=== PATIENT | male | born 1995 | race Two or more races ===

== ENCOUNTER 2017-10-23 15:34 | Emergency (ER) | payer MEDICAID ==
[~2017-10-23] VITALS: Ht 185.4 cm; Wt 75.0 kg
[2017-10-23] MEDS ORDERED: DIPHENHYDRAMINE 50MG CAPSULE PO ONE (19:30)
[2017-10-23 19:43] VITALS: BP 126/87
== END 2017-10-23 19:43 | disposition home or self-care (01) ==
LOC: ER 16:24
DX: T78.40XA Allergy, unspecified, initial encounter (principal); F17.200 Nicotine dependence, unspecified, uncomplicated; F12.10 Cannabis abuse, uncomplicated; Y92.89 Other specified places as the place of occurrence of the external cause
CPT/HCPCS: 99282; Q0163

== ENCOUNTER 2018-04-01 10:48 | Emergency (ER) | payer MEDICAID ==
[~2018-04-01] VITALS: Ht 185.4 cm; Wt 65.0 kg
[2018-04-01] MEDS ORDERED: CEFTRIAXONE SODIUM 250 MG/VIAL IM ONE (12:00)
[2018-04-01] MEDS ORDERED: AZITHROMYCIN 500 MG TABLET PO ONE (12:00)
[2018-04-01] MEDS ORDERED: ONDANSETRON 4MG ODT PO ONE (12:00)
[2018-04-01 13:00] LABS: CLARITY URINE CLEAR (CLEAR); COLOR URINE YELLOW (YELLOW); KETONES URINE NEGATIVE (NEGATIVE); LEUKOCYTE ESTERASE URINE NEGATIVE (NEGATIVE); NITRITE URINE NEGATIVE (NEGATIVE); OCCULT BLOOD URINE NEGATIVE (NEGATIVE); PH URINE 7.5 (4.5-8.0); PROTEIN URINE NEGATIVE (NEGATIVE); SPECIFIC GRAVITY URINE 1.021 (1.005-1.030); UROBILINOGEN URINE 0.2 E.U./dL (0.2-1.0)
[2018-04-01] MEDS ORDERED: LIDOCAINE HCL 1% 20ML VIAL (Pyxis) INJ INFIL ONE (13:00)
[2018-04-01] MEDS ORDERED: LIDOCAINE HCL/PF 1% 10 MG/ML 5ML VIAL IJ ONE (13:30)
[2018-04-01 13:36] VITALS: BP 130/70
== END 2018-04-01 13:37 | disposition home or self-care (01) ==
LOC: ER 10:54
DX: A63.8 Other specified predominantly sexually transmitted diseases (principal); F17.200 Nicotine dependence, unspecified, uncomplicated; F12.10 Cannabis abuse, uncomplicated
CPT/HCPCS: 81003; 87491; 87591; 96372; 99284; J0696; J3490; Q0162

== ENCOUNTER 2021-06-18 13:00 | Emergency (ER) | payer MEDICAID ==
[~2021-06-18] VITALS: Ht 190.5 cm; Wt 102.0 kg
[~2021-06-18 13:00] MED LIST: HYDR-4009 PO; LOV40 SQ
[2021-06-18] MEDS ORDERED: ACETAMINOPHEN 325MG TABLET PO STA (17:03)
[2021-06-18 17:36] LABS: BASOPHILS % 0.6 % (0.0-2.0); EOSINOPHILS % 0.1 % (0.0-5.0); HEMATOCRIT. 47.1 % (42.0-52.0); HEMOGLOBIN. 16.4 g/dL (14.0-18.0); LYMPHOCYTES % 29.4 % (20.0-50.0); MEAN CORPUSCULAR HEMOGLOBIN 30.7 pg (28.0-32.0); MEAN CORPUSCULAR VOLUME 88.1 fL (80.0-94.0); MEAN PLATELET VOLUME 11.2 fl (7.4-10.4); MONOCYTES % 10.1 % (2.0-8.0); NEUTROPHILS % 59.8 % (40.0-76.0); PLATELET 174 x1000/uL (130-400); RED BLOOD CELL COUNT 5.35 mill/uL (4.7-6.1); RED CELL DISTRIBUTION WIDTH 12.7 % (11.6-14.6)
[2021-06-18 17:46] LABS: CHLORIDE 105 mEq/L (98-107)
[2021-06-18] MEDS ORDERED: IBUP-2029 MT (18:14)
[2021-06-18 18:30] VITALS: BP 141/86
== END 2021-06-18 18:33 | disposition home or self-care (01) ==
LOC: ER 13:00
DX: U07.1 COVID-19 (principal); B34.9 Viral infection, unspecified; F12.10 Cannabis abuse, uncomplicated; M79.10 Myalgia, unspecified site; Z96.651 Presence of right artificial knee joint; Z98.890 Other specified postprocedural states; Z91.013 Allergy to seafood
CPT/HCPCS: 36415; 71045; 80048; 85025; 87426; 99284; C9803; U0003; U0005; Z7610

== ENCOUNTER 2025-08-17 08:31 | Emergency (ER) | payer MEDICAID, OTHER ==
[~2025-08-17] VITALS: Ht 188 cm; Wt 108.0 kg
[~2025-08-17 08:31] MED LIST changes: +ENOX40SY27 SQ; +IBUP-1455 MT; -LOV40 SQ
[2025-08-17 08:44] VITALS: O2SAT 98
[2025-08-17] MEDS ORDERED: AMOX1TAB16 MT (09:16)
[2025-08-17] MEDS ORDERED: SULF1TAB48 MT (09:16)
[2025-08-17 09:55] VITALS: BP 128/87; PULSE 90; RESP 14; TEMP 36.9; O2SAT 97
== END 2025-08-17 09:57 | disposition home or self-care (01) ==
LOC: ER 08:31
DX: L03.213 Periorbital cellulitis (principal); F12.90 Cannabis use, unspecified, uncomplicated; Z98.890 Other specified postprocedural states
CPT/HCPCS: 99283